=== PATIENT | male | born 2000 | race Hispanic/Latino ===

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

== ENCOUNTER 2022-11-17 22:28 | Emergency (ER) | payer OTHER ==
--- OUTSIDE RECORDS SUMMARY | 2022-11-17 22:32 | XMS REPORT | Continuity of Care Document ---
:2000 Author Organization [facility] t Address [address] [place] [address]. [address] [place] [address] Care Team Providers Name Role Phone Kayy Krause Primary Care Physician CHAY DOUGLAS Attending Clinician Unavailable Chay Johnson Attending Clinician CLAUDIA GUAJARDO Attending Clinician Unavailable Claudia Melo Attending Clinician CLAUDIA GUAJARDO Admitting Clinician Unavailable Payers Payer Name Policy Type Policy Number Effective Date Expiration Date [facility] [id number] 2020 PPO 00:00:00 Problems Condition Condition Condition Status Onset Resolution Last Treating Co mments Source Name Details Category Date Date Treatment Clinician Date No known No known Disease Unive rs active active ity of problems problems [facility] Allergies, Adverse Reactions, Alerts Allergy Allergy Status Severity Reaction(s) Onset Inactive Treating Comm ents Source Name Type Date Date Clinician NO KNOWN Drug Active Univers ALLERGIE Class ity of S [facility] Social History Social Habit Start Date Stop Date Quantity Comments Source Exposure to 2022-02-12 2022-02-22 Not sure [facility] SARS-CoV-2 (event) 00:00:00 14:11:00 Medica l Branch Sex Assigned At [birth year] [facility] 00:00:00 00:00:00 Medical Branch Smoking Status Start Date Stop Date Source Tobacco smoking consumption [facility] unknown Branch Medications Ordered Filled Start Stop Current Ordering Indication Dosage Frequency Signature Comments Components Source Medication Medication Date Date Medication? Clinician (SIG) Name Name hydrOXYzine 2021-04 Yes [id number] 25mg Take 1 Univers 25 mg 04-24 tablet by ity of tablet 00:00: mouth [place] 00 every 6 Medical (six) Branch hours as needed for Anxiety. ibuprofen 2020-04 600mg 600 mg, Uni vers (IBU) 05-17 Oral, ity of tablet 600 05:15: 04:19 ONCE, 1 Caesar as mg 00 :00 dose, On Medical Tue Branch 03/15/21 at 2315, EVNICE albuterol 2020-04 Yes [id number] 2{puff} Inhale 2 Univers 90 1-30 Puffs ity of mcg/actuati 00:00: every 4 Caesar as on inhaler 00 (four) Medical hours as Branch needed for Wheezing or Shortness of Breath. albuterol 2020-04 Yes [id number] 2{puff} Inhale 2 Univers 90 1-30 Puffs ity of mcg/actuati 00:00: every 4 Caesar as on inhaler 00 (four) Medical hours as Branch needed for Wheezing or Shortness of Breath. Vital Signs Vital Name Observation Time Observation Value Comments Source Systolic blood 2022-02-22 23:01:23 120 mm[Hg] [facility] Diastolic blood 2022-02-22 23:01:23 84 mm[Hg] [facility] Heart rate 2022-02-22 23:01:23 72 /min [facility] Body temperature 2022-02-22 23:01:23 37.06 Rosanna [facility] Respiratory rate 2022-02-22 23:01:23 18 /min [facility] Oxygen saturation in 2022-02-22 23:01:23 98 /min [facility] Arterial blood by [facility] Pulse oximetry Branch Body height 2022-02-22 20:16:00 167.6 cm [facility] Body weight 2022-02-22 20:16:00 65.772 kg [facility] BMI 2022-02-22 20:16:00 23.40 kg/m2 Universi ty [facility] Systolic blood 2021-03-16 03:50:00 150 mm[Hg] Univer sity of pressure [facility] Branch Diastolic blood 2021-03-16 03:50:00 80 mm[Hg] Unive rsity of pressure [facility] Heart rate 2021-03-16 03:50:00 83 /min Universi [facility] Body temperature 2021-03-16 03:50:00 37.72 Rosanna [facility] Respiratory rate 2021-03-16 03:50:00 18 /min [facility] Body height 2021-03-16 03:50:00 167.6 cm Universi [facility] Body weight 2021-03-16 03:50:00 69.083 kg Universi [facility] BMI 2021-03-16 03:50:00 24.58 kg/m2 [facility] Body mass index 2021-03-16 03:50:00 74.41 % Unive rsity of (BMI) [Percentile] [facility] ica Per age and sex Branch Oxygen saturation in 2021-03-16 03:50:00 97 /min [facility] Arterial blood by [facility] Pulse oximetry Branch Procedures Procedure Date / Time Performed Performing Clinician Sour e COMP. METABOLIC PANEL 2022-02-22 21:21:00 Chay Douglas [facility] ([id number]) Medical Branch CBC WITH DIFF 2022-02-22 21:21:00 Chay Douglas [facility] CONSENT/REFUSAL FOR 2022-02-22 20:01:40 Doctor Unassigned, No [facility] [place] DIAGNOSIS AND Name Medical Branch TREATMENT XR CHEST 2 VW 2021-03-16 04:34:00 Claudia Guajardo [place] [facility] NOTICE OF PRIVACY 2021-03-16 03:42:27 Doctor Unassigned, No [facility] Medical Branch CONSENT/REFUSAL FOR 2021-03-16 03:41:56 Doctor Unassigned, No [facility] [place] DIAGNOSIS AND Name Medical Branch TREATMENT Encounters Start End Encounter Admission Attending Care Care Encounter Source Date/Time Date/Time Type Type Clinicians Facility Department ID 2022-02-22 2022-02-[address] [id number] Univers 14:17:00 17:03:00 CHAY young [facility] 2022-02-22 2022-02-[address] [facility] [id number] Univers 14:17:00 17:03:00 Chay COLON [id number] i ty [facility] [place] [id number] [facility] [id number] [address] 2021-03-15 2021-03-15 Emergency X [facility] ERT [id number] Univers 21:53:00 22:55:00 CLAUDIA karenanastasia [facility] 2021-03-15 2021-03-15 Emergency [facility] [id number] Univers 21:53:00 22:55:00 Claudia Yancy DARLENE [id number] i ty [facility] [place] [id number] [facility] [id number] [address] Results Test Description Test Time Test Comments Results Result Comments Source COMP. METABOLIC PANEL (53602) 2022-02-22 21:54:01 Test Item Value Reference Range Interpretation Comme nts NA (test code = 6013423838) 138 mmol/L 135-145 K (test code = 7690858103) 4.1 mmol/L 3.5-5.0 CL (test code = 7903588591) 102 mmol/L 98-108 CO2 TOTAL (test code = 3561713430) 30 mmol/L 23-31 AGAP (test code = 0093930581) 2-16 BUN (test code = 1156933571) 10 mg/dL 7-23 GLUCOSE (test code = 2715255913) 89 mg/dL 70-110 CREATININE (test code = 1.11 mg/dL 0.60-1.25 5705495112) TOTAL BILI (test code = 1.4 mg/dL 0.1-1.1 H 5457621879) CALCIUM (test code = 2154839479) 9.4 mg/dL 8.6-10.6 T PROTEIN (test code = 4762090774) 7.3 g/dL 6.3-8.2 ALBUMIN (test code = 2769220360) 4.9 g/dL 3.5-5.0 ALK PHOS (test code = 9605754591) 73 U/L 34-122 ALTv (test code = 1742-6) 17 U/L 5-50 AST(SGOT) (test code = 2153399967) 17 U/L 13-40 eGFR (test code = 1004475313) mL/min/1.73m2 RAFFI (test code = RAFFI) Association of Glomerular Filtration Rate (GFR) and Staging of Kidney Disease* + +-------- + ------+| GFR (mL/min/1.73 m2) ?| With Kidney Damage ?| ?Without Kidney Damage+ +-- + +| ?>90 ?| ?Stage one ?| ? Normal ?+ +------- + -------+| ?60-89 ?| ?Stage two ?| ? Decreased GFR ? + +-------- + ------+| ?30-59 ?| ?Stage three ?| ? Stage three ? + +-------- + ------+| ?15-29 ?| ?Stage four ? | ? Stage four ?+ +------- + -------+| ?<15 (or dialysis) ? ?| ?Stage five ? | ? Stage five ?+ +------- + -------+ *Each stage assumes the associated GFR level has been in effect for at least three months. ?Stages 1 to 5, with or without kidney disease, indicate chronic kidney disease. Notes: Determination of stages one and two (with eGFR >59mL/min/1.73 m2) requires estimation of kidney damage for at least three months as defined by structural or functional abnormalities of the kidney, manifested by either:Pathological abnormalities or Markers of kidney damage (including abnormalities in the composition of the blood or urine or abnormalities in imaging tests). Lab Interpretation (test code = Abnormal 23155-8) [facility] WITH [id number] 21:40:57 Test Item Value Reference Range Interpretation Comments WBC (test code = See_Comment [Automated 6690-2) message] The sy stem which generated this result transmitted reference range : 4.20 - 10.70 10*3/?L. The reference range was not used to interpret this result as normal/abnormal . RBC (test code = See_Comment [Automated 789-8) message] The sy stem which generated this result transmitted reference range : 4.26 - 5.52 10*6/?L. The reference range was not used to interpret this result as normal/abnormal . HGB (test code = 16.3 g/dL 12.2-16.4 718-7) HCT (test code = 45.5 % 38.4-49.3 4544-3) MCV (test code = 82.6 fL 81.7-95.6 787-2) MCH (test code = 29.6 pg 26.1-32.7 785-6) MCHC (test code = 35.8 g/dL 31.2-35.0 H 786-4) RDW-SD (test code = 36.8 fL 38.5-51.6 L 00807-0) RDW-CV (test code = 12.2 % 12.1-15.4 788-0) PLT (test code = See_Comment [Automated 777-3) message] The sy stem which generated this result transmitted reference range : 150 - 328 10*3/ ?L. The reference r pavan was not used to interpret this result as normal/abnormal . MPV (test code = 9.5 fL 9.8-13.0 L 22339-3) NRBC/100 WBC (test See_Comment [Automat ed code = 7698004535) message] The system which generated this result transmitted reference range : 0.0 - 10.0 /100 WBCs. The refer ence range was not u sed to interpret th is result as normal/abnormal . NRBC x10^3 (test code See_Comment [Auto mated = 6557780162) message] The s ystem which generated this result transmitted reference range : 10*3/?L. The reference range was not used to interpret this result as normal/abnormal . GRAN MAT (NEUT) % 72.1 % (test code = 770-8) IMM GRAN % (test code 0.20 % = 5420895509) LYMPH % (test code = 20.0 % 736-9) MONO % (test code = 6.7 % 5905-5) EOS % (test code = 0.2 % 713-8) BASO % (test code = 0.8 % 706-2) GRAN MAT x10^3(ANC) 3.52 10*3/uL 1.99-6.95 (test code = 9685675281) IMM GRAN x10^3 (test 0.00-0.06 code = 4540399611) LYMPH x10^3 (test code 0.98 10*3/uL 1.09-3.23 L = 731-0) MONO x10^3 (test code 0.33 10*3/uL 0.36-1.02 L = 742-7) EOS x10^3 (test code = 0.06-0.53 L 711-2) BASO x10^3 (test code 0.04 10*3/uL 0.01-0.09 = 704-7) Lab Interpretation Abnormal (test code = 91224-7) [facility]"
--- NOTE | 2022-11-18 00:30 | EDPHYS ---
Physician Documentation [facility] Name: Hans Cannon Age: 22 yrs Sex: Male : 2000 Arrival Date: 11/17/2022 Time: 22:28 Bed DIS3 Private MD: ED Physician Cyril Marie HPI: 11/18 00:32 This 22 yrs old Male presents to ER via Ambulatory with complaints of sb4 Abdominal Pain - injury. 00:32 22-year-old male otherwise healthy presents with complaints of generalized abdominal sb4 pain and nausea. Patient states that he was at work today when he was "pinned" against the wall by a forklift for a few minutes. He denies any loss of consciousness, vomiting, diarrhea, significant pain or bruising.. Historical: - Allergies: 11/17 22:42 No Known Allergies; mb9 - Home Meds: 22:42 None [Active]; mb9 - PMHx: 22:42 Anxiety; depressive disorder; mb9 - PSHx: 22:42 None; mb9 - Immunization history:: Adult Immunizations up to date. - Social history:: Smoking status: Patient reports the use of cigarette tobacco products, denies chronic smoking, but will smoke occasionally, Reported history of juuling and/or vaping. ROS: 11/18 00:32 Constitutional: Negative for fever, chills, and weight loss, Eyes: Negative for injury, sb4 pain, redness, and discharge, ENT: Negative for injury, pain, and discharge, Cardiovascular: Negative for chest pain, palpitations, and edema, Respiratory: Negative for shortness of breath, cough, wheezing, and pleuritic chest pain, Back: Negative for injury and pain, MS/Extremity: Negative for injury and deformity, Skin: Negative for injury, rash, and discoloration. Abdomen/GI: Positive for abdominal pain, nausea, Negative for vomiting, diarrhea, constipation. All other systems are negative. Exam: 00:32 Constitutional: This is a well developed, well nourished patient who is awake, alert, sb4 and in no acute distress. Head/Face: Normocephalic, atraumatic. Eyes: Extra-ocular motions intact. Periorbital areas with no swelling, redness, or edema. Cardiovascular: Regular rate and rhythm with a normal S1 and S2. Respiratory: Lungs have equal breath sounds bilaterally, clear to auscultation and percussion. No rales, rhonchi or wheezes noted. No increased work of breathing, no retractions or nasal flaring. Abdomen/GI: Soft, non-tender, no distension. Skin: Warm, dry with normal turgor. Normal color with no rashes, no lesions, and no evidence of cellulitis. MS/ Extremity: Pulses equal, no cyanosis. Neurovascular intact. Full, normal range of motion. Vital Signs: 11/17 22:39 BP 134 / 80; Pulse 78; Resp 18; Temp 98; Pulse Ox 100% on R/A; Weight 61.23 kg; Height mb9 5 ft. 6 in. ; Pain 04/25; 11/18 00:40 BP 113 / 78; Pulse 72; Resp 16; Pulse Ox 100% on R/A; pf1 11/17 22:39 Body Mass Index 21.79 (61.23 kg, 167.64 cm) mb9 11/17 22:39 Pain Scale: Adult mb9 MDM: 11/17 22:41 Patient medically screened. sb4 11/18 00:32 Differential diagnosis: Intestinal perforation, contusion, splenic laceration, sb4 nonspecific superficial bruising. 00:32 Data reviewed: vital signs, nurses notes, radiologic studies, CT scan, and as a result, sb4 I will discharge patient. Test considered but Not performed: Labs: Not indicated. Counseling: I had a detailed discussion with the patient and/or guardian regarding: the historical points, exam findings, and any diagnostic results supporting the discharge/admit diagnosis, radiology results, to return to the emergency department if symptoms worsen or persist or if there are any questions or concerns that arise at home. 11/17 22:45 Order name: CT Abd/Pelvis - IV Contrast Only sb4 11/17 23:14 Order name: IV Saline Lock; Complete Time: 23:33 mb9 Administered Medications: No medications were administered Disposition Summary: 11/18/22 00:30 Discharge Ordered Location: Home sb4 Problem: new sb4 Symptoms: are unchanged sb4 Condition: Stable sb4 Diagnosis - Acute cystitis sb4 - abdominal trauma sb4 Followup: sb4 - With: Emergency Department - When: As needed - Reason: Worsening of condition Discharge Instructions: - Discharge Summary Sheet sb4 Forms: - Medication Reconciliation Form sb4 - Thank You Letter sb4 - Antibiotic Education sb4 - Prescription Opioid Use sb4 - Patient Portal Instructions sb4 Prescriptions: - Ibuprofen 600 mg Oral Tablet - take 1 tablet by ORAL route every 6 hours As needed take with food; 30 tablet; sb4 Refills: 0, Product Selection Permitted - Zofran 4 mg Oral Tablet - take 1 tablet by ORAL route every 12 hours As needed; 6 tablet; Refills: 0, sb4 Product Selection Permitted - Cipro 500 mg Oral Tablet - take 1 tablet by ORAL route every 12 hours for 7 days; 14 tablet; Refills: 0, sb4 Product Selection Permitted Signatures: Dispatcher [employer] Sybil Castellano PA-C PA-C sb4 Sylvia Salcedo RN RN mb9
--- NOTE | 2022-11-18 00:30 | ER ---
Nurse's Notes [facility] Name: Hans Cannon Age: 22 yrs Sex: Male : 2000 Arrival Date: 11/17/2022 Time: 22:28 Bed DIS3 Private MD: Diagnosis: Acute cystitis;abdominal trauma Presentation: 11/17 22:39 Chief complaint: Patient states: "Today at work, a fork lift pinned me against the wall mb9 for about 5 seconds on accident. I haven't been able to eat since it happens and feel a little bit nauseous. It wasn't going fast but my stomach just feels sore and off. I just wanted to get it checked out". Coronavirus screen: At this time, the client does not indicate any symptoms associated with coronavirus-19. Ebola Screen: No symptoms or risks identified at this time. Initial Sepsis Screen: Does the patient meet any 2 criteria? No. Patient's initial sepsis screen is negative. Does the patient have a suspected source of infection? No. Patient's initial sepsis screen is negative. Risk Assessment: Do you want to hurt yourself or someone else? Patient reports no desire to harm self or others. Onset of symptoms was November 17, 2022. 22:39 Method Of Arrival: Ambulatory mb9 22:39 Acuity: SHEILA 3 mb9 Triage Assessment: 22:43 General: Appears in no apparent distress. Behavior is calm, cooperative. Pain: mb9 Complains of pain in abdomen Quality of pain is described as throbbing, Pain began suddenly, Is intermittent. EENT: No signs and/or symptoms were reported regarding the EENT system. Neuro: Calderón Agitation-Sedation Scale (RASS): 0 - Alert and Calm Level of Consciousness is awake, alert, obeys commands, Oriented to person, place, time, situation, Appropriate for age. Cardiovascular: Patient's skin is warm and dry. Respiratory: Airway is patent Respiratory effort is even, unlabored, Respiratory pattern is regular, symmetrical. GI: Abdomen is flat, non-distended, Bowel sounds present X 4 quads. Abd is soft and non tender X 4 quads. Reports nausea. : No signs and/or symptoms were reported regarding the genitourinary system. Derm: Skin is pink, warm \\T\\ dry. Musculoskeletal: Range of motion: intact in all extremities. Historical: - Allergies: 22:42 No Known Allergies; mb9 - Home Meds: 22:42 None [Active]; mb9 - PMHx: 22:42 Anxiety; depressive disorder; mb9 - PSHx: 22:42 None; mb9 - Immunization history:: Adult Immunizations up to date. - Social history:: Smoking status: Patient reports the use of cigarette tobacco products, denies chronic smoking, but will smoke occasionally, Reported history of juuling and/or vaping. Screenin:40 [facility] ED Fall Risk Assessment (Adult) History of falling in the last 3 months, pf1 including since admission No falls in past 3 months (0 pts) Confusion or Disorientation No (0 pts) Intoxicated or Sedated No (0 pts) Impaired Gait No (0 pts) Mobility Assist Device Used No (0 pt) Altered Elimination No (0 pt) Score/Fall Risk Level 0 - 2 = Low Risk Oriented to surroundings, Maintained a safe environment, Educated pt \\T\\ family on fall prevention, incl call for assistance when getting out of bed, Assessed \\T\\ reinforced patient's understanding of fall precautions, Provided non-skid footwear, Hourly rounding (assess needs \\T\\ fall precautionary measures) done, Used ambulatory aids as needed (educated on \\T\\ assisted with), Used gait belt as appropriate. 23:40 Abuse screen: Denies threats or abuse. Nutritional screening: No deficits noted. pf1 Tuberculosis screening: No symptoms or risk factors identified. Assessment: 23:33 Reassessment: No changes from previously documented assessment. Patient and/or family mb9 updated on plan of care and expected duration. Pain level reassessed. Patient is alert, oriented x 3, equal unlabored respirations, skin warm/dry/pink. Vital Signs: 22:39 BP 134 / 80; Pulse 78; Resp 18; Temp 98; Pulse Ox 100% on R/A; Weight 61.23 kg; Height mb9 5 ft. 6 in. ; Pain 04/25; 11/18 00:40 BP 113 / 78; Pulse 72; Resp 16; Pulse Ox 100% on R/A; pf1 11/17 22:39 Body Mass Index 21.79 (61.23 kg, 167.64 cm) [facility] 11/17 22:39 Pain Scale: Adult 9 ED Course: 11/17 22:34 Patient arrived in ED. am2 22:41 Sybil Malcolm PA-C is PHCP. sb4 22:41 Cyril Marie MD is Attending Physician. sb4 22:42 Triage completed. mb9 22:43 Arm band placed on. mb9 23:09 Inserted saline lock: 22 gauge in right antecubital area, using aseptic technique. mb9 23:09 No provider procedures requiring assistance completed. mb9 23:30 Patient has correct armband on for positive identification. pf1 23:35 CT Abd/Pelvis - IV Contrast Only In Process Unspecified. EDMS 11/18 00:40 Provided Education on: prescription administration. pf1 00:40 IV discontinued, intact, bleeding controlled, No redness/swelling at site. Pressure pf1 dressing applied. Administered Medications: No medications were administered Medication: 11/17 22:44 VIS not applicable for this client. mb9 Outcome: 11/18 00:30 Discharge ordered by . sb4 00:40 Discharged to home ambulatory. pf1 00:40 Condition: improved 00:40 Discharge instructions given to patient, Instructed on discharge instructions, follow up and referral plans. Demonstrated understanding of instructions, follow-up care, medications, Prescriptions given X 3. 00:40 Patient left the ED. pf1 Signatures: Dispatcher [employer] EDPA Nichol Villareal am2 Sybil Malcolm PA-C PA-C sb4 Sylvia Salcedo RN RN mb9 Romi Canales RN RN pf1 Corrections: (The following items were deleted from the chart) 07:21 02:10 Patient left the ED. pf1 pf1
[2022-11-18 03:13] VITALS: BP 134/80; TEMP 98; O2SAT 100
--- NOTE | 2022-11-18 23:13 | RAD REPORT ---
EXAM DESCRIPTION: Abdomen Pelvis W Contrast CLINICAL HISTORY: TRAUMA COMPARISON: None Available. TECHNIQUE: CT of the abdomen and pelvis performed following IV administration of iodinated contras t. This exam was performed according to our departmental dose-optimization program, which includes au tomated exposure control, adjustment of the mA and/or kV according to patient size and/or use of iter ative reconstruction technique. FINDINGS: Lung Bases: The visualized lung bases are clear. No lung calcified granuloma. Bones: No destructive bone lesions identified. Abdomen: Liver: The liver has normal size and density. No intrahepatic biliary dilatation. Gallbladder: No calcified gallstones. The gallbladder is not well distended. Spleen, Pancreas, and Adrenal Glands: The spleen, pancreas, and adrenal glands are unremarkable. Kidneys: Mild bilateral hydroureter and hydronephrosis without obstructing calculus identified. Vasculature: The aorta and IVC have normal caliber and position. The portal vein is patent. The pro ximal visceral and renal arteries are patent. Stomach: The stomach and duodenum have normal course. Other: No free intraperitoneal air. No free fluid or lymphadenopathy. Pelvis: Bladder: Mild wall thickening of the urinary bladder. Bowel: No dilated loops of large or small bowel. Mild long segment wall thickening of the transvers e, descending, and sigmoid colon with minimal adjacent inflammatory change. Mild wall thickening of t he proximal small bowel. Shotty mesenteric lymph nodes. Appendix: Normal appendix. Pelvis: Prostate is not enlarged. IMPRESSION: 1. Findings compatible with acute nonspecific enterocolitis. This may be of infectious or inflammatory etiology. 2. Mild bilateral hydroureter and hydronephrosis without obstructing calculus identified. This may be related to bladder wall thickening. 3. Mild wall thickening of the urinary bladder. This could be seen with cystitis. Electronically signed by: Rios Owens 11/17/2022 11:49 PM CDT Due to temporary technical issues with the PACS/Fluency reporting system, reports are being signed by the in house radiologists without review as a courtesy to insure prompt reporting. The interpreting radiologist is fully responsible for the content of the report.
== END 2022-11-18 02:10 | disposition home or self-care (01) ==
LOC: ER 22:28
DX: N30.00 Acute cystitis without hematuria (principal); S39.91XA Unspecified injury of abdomen, initial encounter; F17.210 Nicotine dependence, cigarettes, uncomplicated
CPT/HCPCS: 74177; 99283; Q9967

== ENCOUNTER → 2023-06-26 | Emergency (ER) | payer OTHER ==
[~2023-06-26] MED LIST: IBUPROFEN 400 MG TAB ONE
--- OUTSIDE RECORDS SUMMARY | 2023-06-26 13:47 | XMS REPORT | Continuity of Care Document ---
Author Name Unknown Address [address] [facility] [address] [place] [address] [facility] thconnect Address [address] [facility] 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 Role Phone Kayy Krause Primary Care Physician [phone] MIREYA DOUGLAS Attending Clinician Unavailable Mireya Johnson Attending Clinician [phone] AN GUAJARDO Attending Clinician Unavailable An Melo Attending Clinician [phone] AN GUAJARDO Admitting Clinician Unavailable Payers Payer Name Policy Type Policy Number Effective Date Expirati on Date Source [facility] [id number] 2020 00:00:00 Problems Condition Name Condition Details Condition Category Status Onset Date Resolution Date Last Treatment Date Treating Clinician Comments Source No known active problems No known active problems Disease [facility] Allergies, Adverse Reactions, Alerts Allergy Name Allergy Type Status Severity Reaction(s) Onset Date Inactive Date Treating Clinician Comments Source NO KNOWN ALLERGIE S Drug Class Active [facility] Social History Social Habit Start Date Stop Date Quantity Comments Source Exposure to SARS-CoV-2 (event) 2022-02-12 00:00:00 2022-02-22 14:11:00 Not sure [facility] Sex Assigned At 2000 00:00:00 2000 00:00:00 [facility] Smoking Status Start Date Stop Date Source Tobacco smoking consumption unknown [facility] Medications Ordered Medication Name Filled Medication Name Start Date Stop Date Current Medication? Ordering Clinician Indication Dosage Frequency Signature (SIG) Comments Components Source hydrOXYzine 25 mg tablet 2021-04 00:00: 00 Yes [id number] 25mg Take 1 tablet by mouth every 6 (six) hours as needed for Anxiety. [facility] ibuprofen (IBU) tablet 600 mg 2020-04 05:15: 00 03-16 04:19 :00 No 600mg 600 mg, Oral, ONCE, 1 dose, On Sun03/15/21 at 2315, VENICE [facility] albuterol 90 mcg/actuati on inhaler 2020-04 00:00: 00 Yes [id number] 2{puff} Inhale 2 Puffs every 4 (four) hours as needed for Wheezing or Shortness of Breath. [facility] albuterol 90 mcg/actuati on inhaler 2020-04 00:00: 00 Yes [id number] 2{puff} Inhale 2 Puffs every 4 (four) hours as needed for Wheezing or Shortness of Breath. [facility] Vital Signs Vital Name Observation Time Observation Value Comments S dodieblaise Systolic blood pressure 2022-02-22 23:01:23 120 mm[Hg] [facility] Diastolic blood pressure 2022-02-22 23:01:23 84 mm[Hg] [facility] Heart rate 2022-02-22 23:01:23 72 /min [facility] Body temperature 2022-02-22 23:01:23 37.06 Rosanna [facility] Respiratory rate 2022-02-22 23:01:23 18 /min [facility] Oxygen saturation in Arterial blood by Pulse oximetry 2022-02-22 23:01:23 98 /min [facility] Body height 2022-02-22 20:16:00 167.6 cm [facility] Body weight 2022-02-22 20:16:00 65.772 kg [facility] BMI 2022-02-22 20:16:00 23.40 kg/m2 [facility] Systolic blood pressure 2021-03-16 03:50:00 150 mm[Hg] [facility] Diastolic blood pressure 2021-03-16 03:50:00 80 mm[Hg] [facility] Heart rate 2021-03-16 03:50:00 83 /min [facility] Body temperature 2021-03-16 03:50:00 37.72 Rosanna [facility] Respiratory rate 2021-03-16 03:50:00 18 /min [facility] Body height 2021-03-16 03:50:00 167.6 cm [facility] Body weight 2021-03-16 03:50:00 69.083 kg [facility] BMI 2021-03-16 03:50:00 24.58 kg/m2 [facility] Body mass index (BMI) [Percentile] Per age and sex 2021-03-16 03:50:00 74.41 % [facility] Oxygen saturation in Arterial blood by Pulse oximetry 2021-03-16 03:50:00 97 /min [facility] Procedures Procedure Date / Time Performed Performing Clinicia n Source COMP. METABOLIC PANEL (30353) 2022-02-22 21:21:00 Mireya Douglas [facility] CBC WITH DIFF 2022-02-22 21:21:00 Mireya Douglas [facility] CONSENT/REFUSAL FOR DIAGNOSIS AND TREATMENT 2022-02-22 20:01:40 Doctor Unassigned, [place] [facility] XR CHEST 2 VW 2021-03-16 04:34:00 An Guajardo [facility] NOTICE OF PRIVACY PRACTICES 2021-03-16 03:42:27 Doctor Unassigned, [place] [facility] CONSENT/REFUSAL FOR DIAGNOSIS AND TREATMENT 2021-03-16 03:41:56 Doctor Unassigned, [place] [facility] Encounters Start Date/Time End Date/Time Encounter Type Admission Type Attending Clinicians Care Facility Care Department Encounter ID Source 2022-02-22 14:17:00 2022-02-22 17:03:00 Emergency X MIREYA DOUGLAS [facility] ERT [id number] [facility] 2022-02-22 14:17:00 2022-02-22 17:03:00 Emergency Mireya Douglas [facility] [id number] [facility] 2021-03-15 21:53:00 2021-03-15 22:55:00 Emergency AN GUPTA [facility] ERT [id number] [facility] 2021-03-15 21:53:00 2021-03-15 22:55:00 Emergency An Guajardo [facility] [id number] [facility] Results Test Description Test Time Test Comments Results Result Co mments Source [facility] WITH [id number] 21:40:57* Test Item Value Reference Range Interpretation Comme nts WBC (test code = 6690-2) See_Comment [Automated nPickera ge] The system which generated this result transmitted reference range: 4.20 - 10.70 10*3/?L. The reference range was not used to interpret this result as normal/abnormal. RBC (test code = 789-8) See_Comment [Automated nPickera ge] The system which generated this result transmitted reference range: 4.26 - 5.52 10*6/?L. The reference range was not used to interpret this result as normal/abnormal. HGB (test code = 718-7) 16.3 g/dL 12.2-16.4 HCT (test code = 4544-3) 45.5 % 38.4-49.3 MCV (test code = 787-2) 82.6 fL 81.7-95.6 MCH (test code = 785-6) 29.6 pg 26.1-32.7 MCHC (test code = 786-4) 35.8 g/dL 31.2-35.0 H RDW-SD (test code = 76661-4) 36.8 fL 38.5-51.6 L RDW-CV (test code = 788-0) 12.2 % 12.1-15.4 PLT (test code = 777-3) See_Comment [Automated messa ge] The system which generated this result transmitted reference range: 150 - 328 10*3/?L. The reference range was not used to interpret this result as normal/abnormal. MPV (test code = 45739-6) 9.5 fL 9.8-13.0 L NRBC/100 WBC (test code = 5576428442) See_Comment [Automated OMG ssage] The system which generated this result transmitted reference range: 0.0 - 10.0 /100 WBCs. The reference range was not used to interpret this result as normal/abnormal. NRBC x10^3 (test code = 8326698656) See_Comment [Automated nPickera ge] The system which generated this result transmitted reference range: 10*3/?L. The reference range was not used to interpret this result as normal/abnormal. GRAN MAT (NEUT) % (test code = 770-8) 72.1 % IMM GRAN % (test code = 5570569714) 0.20 % LYMPH % (test code = 736-9) 20.0 % MONO % (test code = 5905-5) 6.7 % EOS % (test code = 713-8) 0.2 % BASO % (test code = 706-2) 0.8 % GRAN MAT x10^3(ANC) (test code = 9334990777) 3.52 10*3/uL 1.99-6.95 IMM GRAN x10^3 (test code = 6133885070) 0.00-0.06 LYMPH x10^3 (test code = 731-0) 0.98 10*3/uL 1.09-3.23 L MONO x10^3 (test code = 742-7) 0.33 10*3/uL 0.36-1.02 L EOS x10^3 (test code = 711-2) 0.06-0.53 L BASO x10^3 (test code = 704-7) 0.04 10*3/uL 0.01-0.09 Lab Interpretation (test code = 94794-3) Abnormal [facility]
--- NOTE | 2023-06-26 15:16 | RAD REPORT ---
EXAM DESCRIPTION: RAD - Wrist Left 3 View - 06/26/2023 3:08 pm CLINICAL HISTORY: PAIN Pain COMPARISON: No comparisons FINDINGS: No fracture or dislocation seen. No foreign body or other soft tissue abnormality. IMPRESSION: Negative examination.
--- NOTE | 2023-06-26 15:16 | RAD REPORT ---
EXAM DESCRIPTION: RAD - Elbow Left 3 View - 06/26/2023 3:08 pm CLINICAL HISTORY: PAIN COMPARISON: No comparisons FINDINGS: No fracture or dislocation seen.
--- NOTE | 2023-06-26 16:13 | EDPHYS ---
Physician Documentation [facility] Name: Hans Cannon Age: 23 yrs Sex: Male : 2000 Arrival Date: 06/26/2023 Time: 13:45 Bed 9 Private MD: ED Physician Jassi Ivy HPI: 06/25 14:15 This 23 yrs old Male presents to ER via Ambulatory with complaints of Arm Pain.cp 14:15 The patient or guardian complains of pain, that is acute. The complaints affect the cp left elbow and left wrist. Context: resulted from unknown cause. Onset: The symptoms/episode began/occurred 2 day(s) ago. Treatment prior to arrival includes: no previous treatment. Associated signs and symptoms: Pertinent negatives: decreased range of motion, numbness, swelling, warmth, weakness. Severity of symptoms: in the emergency department the symptoms are unchanged. Patient is RHD. Historical: - Allergies: 14:02 No Known Allergies; ld1 - Home Meds: 14:02 None [Active]; ld1 - PMHx: 13:59 Anxiety; depressive disorder; mb9 - PSHx: 14:02 None; ld1 - Immunization history:: Adult Immunizations up to date. - Social history:: Smoking status: Patient denies any tobacco usage or history of. Patient/guardian denies using alcohol. ROS: 14:20 Constitutional: Negative for body aches, chills, fever, poor PO intake, cp 14:20 Eyes: Negative for injury, pain, redness, and discharge, cp 14:20 Cardiovascular: Negative for chest pain, palpitations, 14:20 Respiratory: Negative for cough, shortness of breath, wheezing, 14:20 Abdomen/GI: Negative for abdominal pain, nausea, vomiting, and diarrhea, 14:20 MS/extremity: Positive for pain, tenderness, of the left wrist and left elbow, Negative for injury or acute deformity, decreased range of motion, paresthesias, 14:20 Neuro: Negative for altered mental status, headache, weakness, 14:20 All other systems are negative, Exam: 14:25 Constitutional: The patient appears in no acute distress, alert, awake, comfortable, cp non-toxic, well developed, well nourished, 14:25 Head/Face: Normocephalic, atraumatic. cp 14:25 Neck: C-spine: vertebral tenderness, is not appreciated, crepitus, is not appreciated, ROM/movement: is normal, is supple, without pain, no range of motions limitations, 14:25 Chest/axilla: Inspection: normal, 14:25 Cardiovascular: Rate: normal, Pulses: Pulses are 2+ in left radial artery. 14:25 Respiratory: the patient does not display signs of respiratory distress, Respirations: normal, no use of accessory muscles, no retractions, labored breathing, is not present, 14:25 Abdomen/GI: Inspection: abdomen appears normal, 14:25 Musculoskeletal/extremity: Extremities: grossly normal except: noted in the left elbow: tenderness to posterior aspect of elbow, mild pain with passive ROM, no swelling noted, noted in the left wrist: pain, no restriction with passive ROM, no swelling noted, no tenderness to palpation, Vital Signs: 14:02 BP 142 / 86; Pulse 89; Resp 18; Temp 97.4(TE); Pulse Ox 100% on R/A; Weight 63.5 kg; ld1 Height 5 ft. 6 in. ; Pain 4/10; 16:05 BP 138 / 86; Pulse 81; Resp 18; Pulse Ox 100% ; mb9 14:02 Body Mass Index 22.60 (63.50 kg, 167.64 cm) ld1 14:02 Pain Scale: Adult ld1 MDM: 14:03 Patient medically screened. cp 16:12 Data reviewed: vital signs, nurses notes, radiologic studies, plain films, and as a cp result, I will discharge patient. 06/25 14:09 Order name: XRAY Elbow LEFT 3 view cp 06/25 14:09 Order name: XRAY Wrist LEFT 3 view cp 06/25 15:17 Order name: RAD; Complete Time: 16:04 EDMS 06/25 16:04 Interpretation: Report reviewed. cp 06/25 15:17 Order name: RAD; Complete Time: 16:04 EDMS 06/25 16:05 Interpretation: Report reviewed. cp 06/25 16:11 Order name: Splint - Wrist; Complete Time: 16:11 cp Administered Medications: 14:16 Drug: Ibuprofen PO 800 mg PO once Route: PO; mb9 15:22 Follow up: Response: No adverse reaction mb9 Disposition Summary: 06/26/23 16:13 Discharge Ordered Notes: Location: Home cp Problem: new cp Symptoms: have improved cp Condition: Stable cp Diagnosis - Pain in left elbow cp - Pain in left wrist cp Followup: cp - With: Ed Evangelista MD - When: 1 week - Reason: pain continues Discharge Instructions: - Discharge Summary Sheet cp - Joint Pain cp - Wrist Pain, Adult cp Forms: - Medication Reconciliation Form cp - Thank You Letter cp - Antibiotic Education cp - Prescription Opioid Use cp - Patient Portal Instructions cp - Leadership Thank You Letter cp Prescriptions: - Naprosyn 500 mg Oral tablet - take 1 tablet ORAL route 2 times per day take with food; 20 tablet; Refills: 0, cp Product Selection Permitted Signatures: Dispatcher [employer] EDMS Cyril Canales PA PA cp Chloe Lewis RN RN ld1 Sylvia Salcedo RN RN mb9
--- NOTE | 2023-06-26 16:13 | ER ---
Nurse's Notes [facility] Name: Hans Cannon Age: 23 yrs Sex: Male : 2000 Arrival Date: 06/26/2023 Time: 13:45 Bed 9 Private MD: Diagnosis: Pain in left elbow;Pain in left wrist Presentation: 06/25 14:02 Chief complaint: Patient states: left arm pain X 2 days - denies injury. Coronavirus ld1 screen: At this time, the client does not indicate any symptoms associated with coronavirus-19. Ebola Screen: No symptoms or risks identified at this time. Initial Sepsis Screen: Does the patient meet any 2 criteria? No. Patient's initial sepsis screen is negative. Does the patient have a suspected source of infection? No. Patient's initial sepsis screen is negative. Risk Assessment: Do you want to hurt yourself or someone else? Patient reports no desire to harm self or others. Onset of symptoms was June 26, 2023. 14:02 Method Of Arrival: Ambulatory ld1 14:02 Acuity: SHEILA 4 ld1 Triage Assessment: 14:02 General: Appears in no apparent distress. comfortable, Behavior is calm, cooperative, ld1 appropriate for age. Pain: Complains of pain in left arm Pain does not radiate. Pain currently is 4 out of 10 on a pain scale. Quality of pain is described as throbbing, Pain began suddenly, Is continuous. EENT: No signs and/or symptoms were reported regarding the EENT system. Neuro: Level of Consciousness is awake, alert, obeys commands, Oriented to person, place, time, situation. Cardiovascular: Capillary refill < 3 seconds Patient's skin is warm and dry. Respiratory: Airway is patent Respiratory effort is even, unlabored. Historical: - Allergies: 14:02 No Known Allergies; ld1 - Home Meds: 14:02 None [Active]; ld1 - PMHx: 13:59 Anxiety; depressive disorder; mb9 - PSHx: 14:02 None; ld1 - Immunization history:: Adult Immunizations up to date. - Social history:: Smoking status: Patient denies any tobacco usage or history of. Patient/guardian denies using alcohol. Screenin:[address] [facility] ED Fall Risk Assessment (Adult) History of falling in the last 3 months, mb9 including since admission No falls in past 3 months (0 pts) Confusion or Disorientation No (0 pts) Intoxicated or Sedated No (0 pts) Impaired Gait No (0 pts) Mobility Assist Device Used No (0 pt) Altered Elimination No (0 pt) Score/Fall Risk Level 0 - 2 = Low Risk Oriented to surroundings, Maintained a safe environment, Educated pt \T\ family on fall prevention, incl call for assistance when getting out of bed. Abuse screen: Denies threats or abuse. Nutritional screening: No deficits noted. Tuberculosis screening: No symptoms or risk factors identified. Assessment: 14:04 General: Appears in no apparent distress. Behavior is calm, cooperative. Pain: mb9 Complains of pain in left arm Pain does not radiate. Pain currently is 6 out of 10 on a pain scale. Quality of pain is described as throbbing, Pain began 2-3 days ago. Is continuous. Neuro: Calderón Agitation-Sedation Scale (RASS): 0 - Alert and Calm Level of Consciousness is awake, alert, obeys commands, Oriented to person, place, time, situation, Appropriate for age. Cardiovascular: Patient's skin is warm and dry. Respiratory: Airway is patent Respiratory effort is even, unlabored, Respiratory pattern is regular, symmetrical. GI: No signs and/or symptoms were reported involving the gastrointestinal system. : No signs and/or symptoms were reported regarding the genitourinary system. EENT: No signs and/or symptoms were reported regarding the EENT system. Derm: Skin is pink, warm \T\ dry. Musculoskeletal: Range of motion: intact in all extremities. 15:24 Reassessment: No changes from previously documented assessment. Patient and/or family mb9 updated on plan of care and expected duration. Pain level reassessed. Patient is alert, oriented x 3, equal unlabored respirations, skin warm/dry/pink. 16:18 Reassessment: Patient and/or family updated on plan of care and expected duration. Pain mb9 level reassessed. Patient is alert, oriented x 3, equal unlabored respirations, skin warm/dry/pink. Patient states feeling better. Patient states symptoms have improved. Vital Signs: 14:02 BP 142 / 86; Pulse 89; Resp 18; Temp 97.4(TE); Pulse Ox 100% on R/A; Weight 63.5 kg; ld1 Height 5 ft. 6 in. ; Pain 4/10; 16:05 BP 138 / 86; Pulse 81; Resp 18; Pulse Ox 100% ; mb9 14:02 Body Mass Index 22.60 (63.50 kg, 167.64 cm) ld1 14:02 Pain Scale: Adult ld1 ED Course: 13:47 Patient arrived in ED. rg4 13:50 Cyril Canales PA is PHCP. cp 13:50 Jassi Ivy MD is Attending Physician. cp 13:59 Sylvia Salcedo, RN is Primary Nurse. mb9 13:59 Arm band placed on. mb9 13:59 Placed in gown. Bed in low position. Call light in reach. Side rails up X 1. Provided mb9 Education on: pressing call light. Client placed on continuous cardiac and pulse oximetry monitoring. NIBP monitoring applied. Door closed. Noise minimized. Warm blanket given. 14:02 Triage completed. ld1 14:05 No provider procedures requiring assistance completed. mb9 15:24 Patient did not have IV access during this emergency room visit. mb9 16:12 Ed Evangelista MD is Referral Physician. cp Administered Medications: 14:16 Drug: Ibuprofen PO 800 mg PO once Route: PO; mb9 15:22 Follow up: Response: No adverse reaction mb9 Medication: 14:00 VIS not applicable for this client. mb9 Outcome: 16:13 Discharge ordered by . cp 16:18 Discharged to home ambulatory, mb9 16:18 Condition: stable 16:18 Discharge instructions given to patient, Instructed on discharge instructions, follow up and referral plans. Demonstrated understanding of instructions, follow-up care, medications, Prescriptions given X 1, 16:19 Patient left the ED. mb9 Signatures: Cyril Canales PA PA cp Garcia, Rubi rg4 Chloe Lewis RN RN ld1 Sylvia Salcedo RN RN mb9
[2023-06-26 16:49] VITALS: BP 138/86; TEMP 97.4; O2SAT 100
== END ==
LOC: ER 13:45
DX: M25.532 Pain in left wrist (principal); M25.522 Pain in left elbow

== ENCOUNTER → 2023-06-29 | Emergency (ER) | payer OTHER ==
[~2023-06-29] MED LIST changes: +FAMOTIDINE 20 MG/2 ML VIAL IV ONE; -IBUPROFEN 400 MG TAB ONE
--- OUTSIDE RECORDS SUMMARY | 2023-06-29 10:46 | XMS REPORT | Continuity of Care Document ---
Author Name Unknown Address [address] [facility] [address] [place] [address] [facility] thconnect Address [address] [facility] [address] [place] [address] Care Team Providers Care Air Technician Name Role Phone Kayy Krause Primary Care Physician [phone] MIREYA DOUGLAS Attending Clinician Unavailable Mireya Johnson Attending Clinician [phone] AN GUAJARDO Attending Clinician Unavailable An Melo Attending Clinician [phone] AN GUAJARDO Admitting Clinician Unavailable Payers Payer Name Policy Type Policy Number Effective Date Expirati on Date Source [facility] [id number] 2020 00:00:00 Problems Condition Name Condition Details Condition Category Status Onset Date Resolution Date Last Treatment Date Treating Clinician Comments Source No known active problems No known active problems Disease [facility] Allergies, Adverse Reactions, Alerts Allergy Name Allergy Type Status Severity Reaction(s) Onset Date Inactive Date Treating Clinician Comments Source NO KNOWN ALLERGIE S Drug Class Active [facility] Social History Social Habit Start Date Stop Date Quantity Comments Source Exposure to SARS-CoV-2 (event) 2022-02-12 00:00:00 2022-02-22 14:11:00 Not sure [facility] Sex Assigned At 2000 00:00:00 2000 00:00:00 [facility] Smoking Status Start Date Stop Date Source Tobacco smoking consumption unknown [facility] Medications Ordered Medication Name Filled Medication Name Start Date Stop Date Current Medication? Ordering Clinician Indication Dosage Frequency Signature (SIG) Comments Components Source hydrOXYzine 25 mg tablet 2021-04 00:00: 00 Yes [id number] 25mg Take 1 tablet by mouth every 6 (six) hours as needed for Anxiety. [facility] ibuprofen (IBU) tablet 600 mg 2020-04 05:15: 00 03-16 04:19 :00 No 600mg 600 mg, Oral, ONCE, 1 dose, On Sun03/15/21 at 2315, VENICE [facility] albuterol 90 mcg/actuati on inhaler 2020-04 00:00: 00 Yes [id number] 2{puff} Inhale 2 Puffs every 4 (four) hours as needed for Wheezing or Shortness of Breath. [facility] albuterol 90 mcg/actuati on inhaler 2020-04 00:00: 00 Yes [id number] 2{puff} Inhale 2 Puffs every 4 (four) hours as needed for Wheezing or Shortness of Breath. [facility] Vital Signs Vital Name Observation Time Observation Value Comments S arash Systolic blood pressure 2022-02-22 23:01:23 120 mm[Hg] [facility] Diastolic blood pressure 2022-02-22 23:01:23 84 mm[Hg] [facility] Heart rate 2022-02-22 23:01:23 72 /min [facility] Body temperature 2022-02-22 23:01:23 37.06 Rosanna [facility] Respiratory rate 2022-02-22 23:01:23 18 /min [facility] Oxygen saturation in Arterial blood by Pulse oximetry 2022-02-22 23:01:23 98 /min [facility] Body height 2022-02-22 20:16:00 167.6 cm [facility] Body weight 2022-02-22 20:16:00 65.772 kg [facility] BMI 2022-02-22 20:16:00 23.40 kg/m2 [facility] Systolic blood pressure 2021-03-16 03:50:00 150 mm[Hg] [facility] Diastolic blood pressure 2021-03-16 03:50:00 80 mm[Hg] [facility] Heart rate 2021-03-16 03:50:00 83 /min [facility] Body temperature 2021-03-16 03:50:00 37.72 Rosanna [facility] Respiratory rate 2021-03-16 03:50:00 18 /min [facility] Body height 2021-03-16 03:50:00 167.6 cm [facility] Body weight 2021-03-16 03:50:00 69.083 kg [facility] BMI 2021-03-16 03:50:00 24.58 kg/m2 [facility] Body mass index (BMI) [Percentile] Per age and sex 2021-03-16 03:50:00 74.41 % [facility] Oxygen saturation in Arterial blood by Pulse oximetry 2021-03-16 03:50:00 97 /min [facility] Procedures Procedure Date / Time Performed Performing Clinicia n Source COMP. METABOLIC PANEL (67131) 2022-02-22 21:21:00 Mireya Douglas [facility] CBC WITH DIFF 2022-02-22 21:21:00 Mireya Douglas [facility] CONSENT/REFUSAL FOR DIAGNOSIS AND TREATMENT 2022-02-22 20:01:40 Doctor Unassigned, [place] [facility] XR CHEST 2 VW 2021-03-16 04:34:00 An Guajardo [facility] NOTICE OF PRIVACY PRACTICES 2021-03-16 03:42:27 Doctor Unassigned, [place] [facility] CONSENT/REFUSAL FOR DIAGNOSIS AND TREATMENT 2021-03-16 03:41:56 Doctor Unassigned, [place] [facility] Encounters Start Date/Time End Date/Time Encounter Type Admission Type Attending Clinicians Care Facility Care Department Encounter ID Source 2022-02-22 14:17:00 2022-02-22 17:03:00 Emergency X MIREYA DOUGLAS [facility] ERT [id number] [facility] 2022-02-22 14:17:00 2022-02-22 17:03:00 Emergency Mireya Douglas [facility] [id number] [facility] 2021-03-15 21:53:00 2021-03-15 22:55:00 Emergency AN GUPTA [facility] ERT [id number] [facility] 2021-03-15 21:53:00 2021-03-15 22:55:00 Emergency An Guajardo [facility] [id number] [facility] Results Test Description Test Time Test Comments Results Result Co mments Source [facility] WITH [id number] 21:40:57* Test Item Value Reference Range Interpretation Comme nts WBC (test code = 6690-2) See_Comment [Automated [facility]] The system which generated this result transmitted reference range: 4.20 - 10.70 10*3/?L. The reference range was not used to interpret this result as normal/abnormal. RBC (test code = 789-8) See_Comment [Automated [employer]] The system which generated this result [...] g/dL 31.2-35.0 H RDW-SD (test code = 48653-5) 36.8 fL 38.5-51.6 L RDW-CV (test code = 788-0) 12.2 % 12.1-15.4 PLT (test code = 777-3) See_Comment [Automated messa ge] The system which generated this result transmitted reference range: 150 - 328 10*3/?L. The reference range was not used to interpret this result as normal/abnormal. MPV (test code = 18899-8) 9.5 fL 9.8-13.0 L NRBC/100 WBC (test code = 8985612155) See_Comment [Automated [employer] ssage] The system which generated this result transmitted reference range: 0.0 - 10.0 /100 WBCs. The reference range was not used to interpret this result as normal/abnormal. NRBC x10^3 (test code = 6303840599) See_Comment [Automated messa ge] The system which generated this result transmitted reference range: 10*3/?L. The reference range was not used to interpret this result as normal/abnormal. GRAN MAT (NEUT) % (test code = 770-8) 72.1 % IMM GRAN % (test code = 3063134327) 0.20 % LYMPH % (test code = 736-9) 20.0 % MONO % (test code = 5905-5) 6.7 % EOS % (test code = 713-8) 0.2 % BASO % (test code = 706-2) 0.8 % GRAN MAT x10^3(ANC) (test code = 3135001098) 3.52 10*3/uL 1.99-6.95 IMM GRAN x10^3 (test code = 4670712441) 0.00-0.06 LYMPH x10^3 (test code = 731-0) 0.98 10*3/uL 1.09-3.23 L MONO x10^3 (test code = 742-7) 0.33 10*3/uL 0.36-1.02 L EOS x10^3 (test code = 711-2) 0.06-0.53 L BASO x10^3 (test code = 704-7) 0.04 10*3/uL 0.01-0.09 Lab Interpretation (test code = 05185-9) Abnormal [facility]
--- NOTE | 2023-06-29 12:10 | RAD REPORT ---
EXAM DESCRIPTION: El Single View06/29/2023 12:04 pm CLINICAL HISTORY: Chest pain COMPARISON: 2017 FINDINGS: The lungs appear clear of acute infiltrate. The heart is normal size IMPRESSION: No acute abnormalities displayed
[2023-06-29 13:16] LABS: Absolute Basophils 0.1 K/uL (0-0.5); Absolute Lymphocytes (CBC) 1.7 K/uL (0.7-4.9); Absolute Monocytes 0.5 K/uL (0.1-1.3); Absolute Neutrophil 4.1 K/uL (1.8-8.0); Basophils % 1.3 % (0-1.3); Eosinophils % 0.6 % (0-4.4); Hematocrit 47.6 % (39.6-49.0); Hemoglobin 16.5 g/dL (13.6-17.9); Lymphocytes % 26.5 % (15.3-44.8); MCH 29.1 pg (27.0-35.0); MCHC 34.6 g/dL (32.0-36.0); MCV 84.2 fL (80-100); MPV 7.1 fL (7.6-11.3); Monocytes % 7.1 % (3.3-12.3); Neutrophils % 64.5 % (41.7-73.7); Platelets 289 thou/uL (152-406); RBC Red Blood Cell Count 5.65 M/uL (4.33-5.43); Red Cell Distribution Width 13.1 % (12.1-15.2)
[2023-06-29 13:34] LABS: Albumin 4.1 g/dL (3.4-5.0); Albumin/Globulin Ratio 1.2 (1.1-1.8); Anion Gap 8.1 mEq/L (5.0-15.0); Bilirubin Total 0.6 mg/dL (0.2-1.0); Globulin 3.3 g/dL (2.3-3.5); Potassium 4.1 mEq/L (3.5-5.1); Protein, Total 7.4 g/dL (6.4-8.2); Troponin High Sensitivity 3.2 pg/mL (<58.9)
--- NOTE | 2023-06-29 13:46 | EDPHYS ---
Physician Documentation [facility] Name: Hans Cannon Age: 23 yrs Sex: Male : 2000 Arrival Date: 06/29/2023 Time: 10:44 Bed 4 Private MD: ED Physician Roger Khan HPI: 06/28 10:58 This 23 yrs old Male presents to ER via Ambulatory with complaints of Chest ec2 Pressure. 10:58 Patient arrives today for epigastric and chest pain. Patient reports pain started ec2 earlier this morning. Patient reports no specific exertional component, no significant medical problems. Patient reports this feels like heartburn. Patient reports no abdominal pain, no nausea or vomiting or diarrhea.. Historical: - Allergies: 10:54 No Known Allergies; ll1 - PMHx: 10:54 Anxiety; depressive disorder; ll1 - PSHx: 10:54 None; ll1 - Immunization history:: Adult Immunizations up to date, Client reports receiving the 2nd dose of the Covid vaccine. - Social history:: Smoking status: Patient reports the use of cigarette tobacco products, denies chronic smoking, but will smoke occasionally, Reported history of juuling and/or vaping. ROS: 10:58 Constitutional: as per hpi ec2 Exam: 10:58 Constitutional: GEN: NAD Head: atraumatic Eyes: EOMI Ears: External ears are ec2 normal. CV: regular rate, no murmur LUNGS: no respiratory distress, no wheezes, rales, or rhonchi ABD: non-distended, soft, nontender, no guarding, not rigid SKIN: no evidence of rashes MSK: no evidence of trauma NEURO: moves all extremities equally Vital Signs: 10:54 BP 145 / 98; Pulse 73; Resp 17; Temp 98.1; Pulse Ox 98% ; Weight 63.5 kg; Height 5 ft. ll1 6 in. ; Pain 5/10; 14:16 BP 104 / 67; Pulse 72; Resp 19; Pulse Ox 99% on R/A; aa5 10:54 Body Mass Index 22.60 (63.50 kg, 167.64 cm) ll1 10:54 Pain Scale: Adult ll1 MDM: 10:55 Patient medically screened. ec2 10:58 Data reviewed: vital signs. ED course: Patient arrives today for evaluation of chest ec2 pressure and epigastric pain. Examination remarkable for well-appearing nontoxic individual is otherwise in no acute distress. EKG obtained, independently reviewed and interpreted by me, shows normal sinus rhythm, rate 73, no acute ST segment ovation's, normal nonconcerning. Will obtain lab work as well as chest x-ray to further investigate the patient complaint. Currently evaluated process as ACS, doubt PE or dissection. Additionally considering gastritis. . 12:24 ED course: Chest x-ray shows no acute intrathoracic process. . ec2 13:43 ED course: Metabolic profile reassuring, troponin within normal ranges, lipase within ec2 normal ranges. On reassessment patient remains well-appearing in no acute distress. Will discharge home, suspect gastritis. Return precautions given. . 06/28 11:00 Order name: CBC with Diff; Complete Time: 13:22 ec2 06/28 11:00 Order name: Troponin HS; Complete Time: 13:43 ec2 06/28 11:00 Order name: CMP; Complete Time: 13:43 ec2 06/28 11:00 Order name: Lipase; Complete Time: 13:43 ec2 06/28 11:00 Order name: XRAY Chest (1 view); Complete Time: 12:24 ec2 06/28 11:00 Order name: EKG; Complete Time: 11:00 ec2 06/28 11:00 Order name: Cardiac monitoring; Complete Time: 11: ec2 06/28 11:00 Order name: EKG - Nurse/Tech; Complete Time: 11: ec2 06/28 11:00 Order name: IV Saline Lock; Complete Time: 11:08 ec2 06/28 11:00 Order name: Labs collected and sent; Complete Time: 11: ec2 06/28 11:00 Order name: O2 Per Protocol; Complete Time: 11: ec2 06/28 11:00 Order name: O2 Sat Monitoring; Complete Time: : ec2 06/28 11:16 Order name: Labs - recollect needed; Complete Time: 12:39 mc5 Administered Medications: 11:12 Drug: Famotidine IVP 20 mg IVP once; dilute with 10 mL 0.9% NaCl; give over 2 minutes aa5 Route: IVP; Site: right forearm; 14:17 Follow up: Response: No adverse reaction kd3 Disposition Summary: 06/29/23 13:45 Discharge Ordered Notes: Location: Home ec2 Condition: Stable ec2 Diagnosis - Chest pain, unspecified ec2 Followup: ec2 - With: Private Physician - When: - Reason: Recheck today's complaints Discharge Instructions: - Discharge Summary Sheet ec2 - Nonspecific Chest Pain, Adult, [id number] ec2 Forms: - Medication Reconciliation Form ec2 - Thank You Letter ec2 - Antibiotic Education ec2 - Prescription Opioid Use ec2 - Patient Portal Instructions ec2 - Leadership Thank You Letter ec2 Signatures: Dispatcher [employer] Kat Abraham RN RN aa5 Iqra Zabala RN RN 1 Bren Friedman 5 Roger Khan MD MD ec2 Estephania Louie RN kd3
--- NOTE | 2023-06-29 13:46 | ER ---
Nurse's Notes [facility] Name: Hans Cannon Age: 23 yrs Sex: Male : 2000 Arrival Date: 06/29/2023 Time: 10:44 Bed 4 Private MD: Diagnosis: Chest pain, unspecified Presentation: 06/28 10:54 Chief complaint: Patient states: Lower bilateral chest pressure with some nausea ll1 started at 8 AM. "Heartburn feeling every once in awhile". No SOB, cough, or fevers. Coronavirus screen: Vaccine status: Patient reports receiving the 2nd dose of the covid vaccine. Client denies travel out of the [place] in the last 14 days. At this time, the client does not indicate any symptoms associated with coronavirus-19. Ebola Screen: Patient denies travel to an Ebola-affected area in the 21 days before illness onset. Initial Sepsis Screen: Does the patient meet any 2 criteria? No. Patient's initial sepsis screen is negative. Does the patient have a suspected source of infection? No. Patient's initial sepsis screen is negative. Risk Assessment: Do you want to hurt yourself or someone else? Patient reports no desire to harm self or others. Onset of symptoms was June 29, 2023. 10:54 Method Of Arrival: Ambulatory ll1 10:54 Acuity: SHEILA 3 ll1 Triage Assessment: 10:56 General: Appears in no apparent distress. Behavior is calm, cooperative, appropriate ll1 for age. Pain: Complains of pain in chest Pain currently is 5 out of 10 on a pain scale. Quality of pain is described as pressure. Cardiovascular: Reports chest pain, nausea. GI: Reports nausea. Historical: - Allergies: 10:54 No Known Allergies; ll1 - PMHx: 10:54 Anxiety; depressive disorder; ll1 - PSHx: 10:54 None; ll1 - Immunization history:: Adult Immunizations up to date, Client reports receiving the 2nd dose of the Covid vaccine. - Social history:: Smoking status: Patient reports the use of cigarette tobacco products, denies chronic smoking, but will smoke occasionally, Reported history of juuling and/or vaping. Screenin:58 [facility] ED Fall Risk Assessment (Adult) History of falling in the last 3 months, aa5 including since admission No falls in past 3 months (0 pts) Confusion or Disorientation No (0 pts) Intoxicated or Sedated No (0 pts) Impaired Gait No (0 pts) Mobility Assist Device Used No (0 pt) Altered Elimination No (0 pt) Score/Fall Risk Level 0 - 2 = Low Risk Oriented to surroundings, Maintained a safe environment, Educated pt \\T\\ family on fall prevention, incl call for assistance when getting out of bed. Abuse screen: Denies threats or abuse. Nutritional screening: No deficits noted. Tuberculosis screening: No symptoms or risk factors identified. Assessment: 10:55 General: Appears comfortable, Behavior is calm, cooperative. Pain: Complains of pain in aa5 mid-sternal area,epigastric Pain does not radiate. Pain currently is 5 out of 10 on a pain scale. Quality of pain is described as pressure, Pain began 0800 today Is episodic. Neuro: Level of Consciousness is awake, alert, obeys commands, Oriented to person, place, time, situation. Cardiovascular: Heart tones S1 S2 present Rhythm is regular. Respiratory: Airway is patent Respiratory effort is even, unlabored, Respiratory pattern is regular, symmetrical. GI: Abdomen is flat, non-distended, Bowel sounds present X 4 quads. Abd is soft and non tender X 4 quads. Reports nausea, Patient currently denies diarrhea, vomiting. : No signs and/or symptoms were reported regarding the genitourinary system. EENT: No signs and/or symptoms were reported regarding the EENT system. Derm: Skin is pink, warm \\T\\ dry. Musculoskeletal: Range of motion: intact in all extremities. 11:30 Reassessment: Patient is alert, oriented x 3, equal unlabored respirations, skin aa5 warm/dry/pink. Labs being recollected by industrial engineering technologist. . 14:15 Reassessment: Patient is alert, oriented x 3, equal unlabored respirations, skin aa5 warm/dry/pink. Vital Signs: 10:54 BP 145 / 98; Pulse 73; Resp 17; Temp 98.1; Pulse Ox 98% ; Weight 63.5 kg; Height 5 ft. ll1 6 in. ; Pain 5/10; 14:16 BP 104 / 67; Pulse 72; Resp 19; Pulse Ox 99% on R/A; aa5 10:54 Body Mass Index 22.60 (63.50 kg, 167.64 cm) ll1 10:54 Pain Scale: Adult ll1 ED Course: 10:46 Patient arrived in ED. mg5 10:47 Arm band placed on Patient placed in an exam room, on a stretcher. ll1 10:48 Kat Gonzalez, RN is Primary Nurse. aa5 10:49 Roger Khan MD is Attending Physician. ec2 10:55 Triage completed. ll1 10:55 Client placed on continuous cardiac and pulse oximetry monitoring. NIBP monitoring hb applied. service architect on. Pulse ox on. NIBP on. 10:55 Patient has correct armband on for positive identification. Bed in low position. Call aa5 light in reach. Side rails up X 1. 10:55 EKG done, by ED staff, reviewed by Roger Khan MD. hb 10:55 Patient maintains SpO2 saturation greater than 95% on room air. hb 11:01 Initial lab(s) drawn, by me, sent to lab. EKG done. Missed attempt(s): 22 gauge in jg11 right antecubital area. 11:12 Inserted saline lock: 22 gauge in right forearm, using aseptic technique. aa5 12:06 XRAY Chest (1 view) In Process Unspecified. EDMS 13:10 Lab(s) recollected, by me, sent to lab. hb 14:15 Provided Education on: follow up . aa5 14:15 No provider procedures requiring assistance completed. IV discontinued, intact, aa5 bleeding controlled, No redness/swelling at site. Pressure dressing applied. Administered Medications: 11:12 Drug: Famotidine IVP 20 mg IVP once; dilute with 10 mL 0.9% NaCl; give over 2 minutes aa5 Route: IVP; Site: right forearm; 14:17 Follow up: Response: No adverse reaction kd3 Medication: 14:16 VIS not applicable for this client. aa5 Outcome: 13:45 Discharge ordered by MD. ec2 14:15 Discharged to home ambulatory, aa5 14:15 Condition: stable 14:15 Discharge instructions given to patient, Instructed on discharge instructions, follow up and referral plans. Demonstrated understanding of instructions, follow-up care, 14:17 Patient left the ED. kd3 Signatures: Dispatcher [employer] EDMS Kat Gonzalez, RN RN aa5 Linda Banegas RN RN Iqra Zabala RN RN 1 Estephania Louie RN RN kd3 Mechelle Pena mg5 Roger Khan MD MD ec2 Sudeep Holman [id number] Corrections: (The following items were deleted from the chart) :13 11:13 Inserted saline lock: 22 gauge in right forearm, using aseptic technique. aa5 aa5
[2023-06-29 14:36] VITALS: BP 104/67; TEMP 98.1; O2SAT 99
== END ==
LOC: ER 10:44
DX: R07.9 Chest pain, unspecified (principal); F17.210 Nicotine dependence, cigarettes, uncomplicated
CPT/HCPCS: 36415; 71045; 80053; 83690; 84484; 85025; 93005; 96374; 99285